=== PATIENT | female | born 1960 | race Caucasian/White ===

== ENCOUNTER 2019-10-11 09:48 | Emergency (ER) | payer OTHER ==
[2019-10-11 10:04] VITALS: BP 135/85
--- NOTE | 2019-10-11 10:41 | ED ---
Respiratory - HPI Summary HPI Summary: 59-year-old male presents to dry cough for the past 2 weeks. States that she's had sinus congestion and postnasal drip. She says she has chronic postnasal drip. States she has a history of allergies. States that one of her roommates is sick with a cold. She states that her roomate also smokes which has been bothering her allergies. States she did travel to [place] over 2 weeks ago. She was not in contact with anyone sick in [place]. She denies any fevers. No sore throat. no nausea or vomiting. no chest pain or shortness of breath currently. has a history asthma or copd. has history of fibromyalgia and seizures. - History of Current Complaint Chief Complaint: EDUpperRespComplaint Stated Complaint: COUGH PER PT Time Seen by Provider: 10/11/19 10:22 Pain Intensity: 0 - Allergy/Home Medications Allergies/Adverse Reactions: Allergies Allergy/AdvReac Type Severity Reaction Status Date / Time codeine Allergy Severe Vomiting Verified 10/11/19 10:04 erythromycin base Allergy Severe GI Upset Verified 10/11/19 10:04 oxycodone Allergy Severe Vomiting Verified 10/11/19 10:04 rosuvastatin Allergy Severe ulceration Verified 10/11/19 10:04 of the stomach Wmyyoyt-Nzz-Cck Reductase Allergy Severe muscle Verified 10/11/19 10:04 Inhibitor pain bee venom protein (honey bee) Allergy Unknown Verified 10/11/19 10:04 Reaction Details ENVIRONMENTAL Allergy Unknown BREATHING, Uncoded 10/11/19 10:04 SINUSES FRAGRANCES Allergy Unknown BREATHING Uncoded 10/11/19 10:04 Home Medications: Home Medications Ibuprofen TAB* [Motrin TAB* 600 MG] 600 mg PO TID PRN MDD 3 tabs 07/31/12 [ History Confirmed 10/11/19] Levothyroxine TAB* [Synthroid 100 MCG TAB*] 88 mcg PO EVERY OTHER DAY 07/31/12 [ History Confirmed 10/11/19] Milnacipran(NF) [Savella(NF)] 50 mg PO BID 07/31/12 [History Confirmed 10/11/19] levETIRAcetam [Keppra] 1,000 mg PO QAM 09/12/18 [History Confirmed 10/11/19] levETIRAcetam [Keppra] 500 mg PO QPM 09/12/18 [History Confirmed 10/11/19] Cholecalciferol (Vitamin D3) [Vitamin D3] 5,000 unit PO DAILY 09/19/18 [History Confirmed 10/11/19] Cyanocobalamin TAB* [Vitamin B12 TAB*] 1,000 mcg PO DAILY 10/11/19 [History Confirmed 10/11/19] Famotidine TAB* [Pepcid 20 MG TAB*] 20 mg PO DAILY 10/11/19 [History Confirmed 10/11/19] Levothyroxine TAB* [Synthroid TAB*] 100 mcg PO EVERY OTHER DAY 10/11/19 [ History Confirmed 10/11/19] Magnesium Oxide TAB* [MagOx 400 TAB*] 400 mg PO DAILY 10/11/19 [History Confirmed 10/11/19] Methenamine/Sodium Salicylate [Azo Urinary Tract Defense 162-162.5 mg] 95 mg PO DAILY PRN 10/11/19 [History Confirmed 10/11/19] Riboflavin (B2) (NF) [Vitamin B-2 (NF)] 400 mg PO DAILY 10/11/19 [History Confirmed 10/11/19] Spironolactone TAB* [Aldactone TAB*] 12.5 mg PO DAILY 10/11/19 [History Confirmed 10/11/19] PMH/Surg Hx/FS Hx/Imm Hx Endocrine/Hematology History: Reports: Hx Thyroid Disease - Hashimotos, Hx Anemia - IN THE PAST- PRIOR TO HYSTERECTOMY Denies: Hx Diabetes Cardiovascular History: Reports: Hx Angina, Hx Hypercholesterolemia, Other Cardiovascular Problems/Disorders - HISTORY OF PAC'S-OCCASIONAL PVC'S- Denies: Hx Coronary Artery Disease, Hx Hypertension, Hx Myocardial Infarction , Hx Pacemaker/ICD, Hx Valvular Heart Disease Respiratory History: Denies: Hx Asthma, Hx Chronic Obstructive Pulmonary Disease (COPD) GI History: Reports: Hx Gastroesophageal Reflux Disease - SCHOTSKI'S RING- HAS HAD 2 DILATION FOR IN THE PAST, Hx Hiatal Hernia - DX IN 2009 WITH EGD, Hx Ulcer - 3 X - History: Reports: Other Problems/Disorders - OCCASIONAL UTI Denies: Hx Dialysis, Hx Renal Disease Musculoskeletal History: Reports: Hx Arthritis - HIPS,JOINTS Sensory History: Reports: Hx Cataracts - BILATERAL, Hx Contacts or Glasses - GLASSES Denies: Hx Hearing Aid Opthamlomology History: Reports: Hx Cataracts - BILATERAL, Hx Contacts or Glasses - GLASSES Neurological History: Reports: Hx Headaches - TREATS WITH PSEUDOFED, Hx Migraine - 1 Q 3 MONTHS- TREATS WITH EXCEDRINE OR RELPAX, Other Neuro Impairments/Disorders - ?NEUROPATHY IN HANDS AND TOES Psychiatric History: Reports: Hx Depression - IN THE PAST; ON MEDICATION FOR Denies: Hx Panic Disorder - Cancer History Cancer Type, Location and Year: CERVICAL CANCER - HYSTERECTOMY Hx Chemotherapy: No Hx Radiation Therapy: No - Surgical History Surgery Procedure, Year, and Place: 2009 - Right and Left Great toe surgery - NO HARDWARE. Endoscopy X2 WITH ESOPHAGEAL DILATATION. Colonoscopy, Bilateral Cataracts. 1982 - HYSTERECTOMY, PRIOR TUBAL LIGATION. 2009 LAPAROSCOPIC CHOLECYSTECTOMY. CERVIX REPAIR X 2 POST WITH ANESTHESIA. PURSE STRING SUTURE TO THE CERVIX - 2ND Hx Anesthesia Reactions: Yes - N/V Infectious Disease History: No Infectious Disease History: Denies: Hx Hepatitis, Hx Human Immunodeficiency Virus (HIV), Traveled Outside the [place] in Last 30 Days - Family History Known Family History: Positive: Non-Contributory - Social History Alcohol Use: Occasionally Substance Use Type: Reports: None Smoking Status (MU): Never Smoked Tobacco Review of Systems Negative: Fever Positive: Nasal Discharge Negative: Chest Pain Positive: Cough. Negative: Shortness Of Breath All Other Systems Reviewed And Are Negative: Yes Physical Exam Triage Information Reviewed: Yes Vital Signs On Initial Exam: Initial Vitals Temp Pulse Resp BP Pulse Ox 99.4 F 91 14 135/85 100 10/11/19 09:58 10/11/19 09:58 10/11/19 09:58 10/11/19 09:58 10/11/19 09:58 Vital Signs Reviewed: Yes Appearance: Positive: Well-Appearing Skin: Positive: Warm, Dry Head/Face: Positive: Normal Head/Face Inspection Eyes: Positive: Normal, EOMI, MELISSA, Conjunctiva Clear ENT: Positive: Normal ENT inspection, Pharynx normal, TMs normal Respiratory/Lung Sounds: Positive: Clear to Auscultation, Breath Sounds Present Cardiovascular: Positive: Normal, RRR Abdomen Description: Positive: Nontender, Soft Bowel Sounds: Positive: Present Musculoskeletal: Positive: Normal Neurological: Positive: Normal Psychiatric: Positive: Normal Procedures - Sedation Patient Received Moderate/Deep Sedation with Procedure: No Diagnostics - Vital Signs Vital Signs Temp Pulse Resp BP Pulse Ox 10/11/19 09:58 99.4 F 91 14 135/85 100 - Laboratory Lab Statement: Any lab studies that have been ordered have been reviewed, and results considered in the medical decision making process. Disposition - Course Course Of Treatment: 59-year-old male presents to dry cough for the past 2 weeks. States that she's had sinus congestion and postnasal drip. She says she has chronic postnasal drip. States she has a history of allergies. States that one of her roommates is sick with a cold. She states that her roomate also smokes which has been bothering her allergies. States she did travel to [place] over 2 weeks ago. She was not in contact with anyone sick in [place]. She denies any fevers. No sore throat. no nausea or vomiting. no chest pain or shortness of breath currently. has a history asthma or copd. has history of fibromyalgia and seizures. on exam lungs clear to auscultation. sinus congestion noted. does not meet qualifications to test for covid. discussed likely an upper respiratory infection. told to treat supportively. patient understands agrees the plan. - Differential Dx - Cardiopulmonary Differential Diagnoses - Cardiopulmonary: Bronchitis, Influenza, Lower Resp Infection - Diagnoses Provider Diagnoses: Upper respiratory infection Discharge ED - Sign-Out/Discharge Documenting (check all that apply): Patient Departure - Discharge Plan Condition: Good Disposition: HOME Patient Education Materials: Upper Respiratory Infection (ED) Referrals: Yamel Escudero DO [Primary Care Provider] - Additional Instructions: Use saline in nose continue flonase Take Tylenol every 6 hours for pain Follow up with primary within 5 days Return to ED if develop any new or worsening symptoms - Billing Disposition and Condition Condition: GOOD Disposition: Home - Attestation Statements Provider Attestation: I was available for consultation for this patient. I did not evaluate the patient or participate in any medical decision making or disposition decisions unless I am specifically named in the chart as having consulted on the patient. If I have consulted on the patient, please see my own ED note on the patient encounter. Maria E Torres MD
--- OUTSIDE RECORDS SUMMARY | 2019-10-11 10:50 | XMS REPORT | Continuity of Care Document ---
:1960 External Reference #:[id number] Author Name Arlet Macias MD (transmitted by agent of provider Brittney Villalta) Address [address], [address] [place] [address] Care Team Providers Name Role Phone Janessa Baxter MD - Surgery Care Team Information Hadoop Consultant [phone] Momo Rosales MD - Gastroenterology Care Team Information Hadoop Consultant Zoie Escudero DO - Family Care Team Information Hadoop Consultant Medicine Gino Morrell MD - Cardiovascular Care Team Information Hadoop Consultant Disease Problems Active Problems Provider Date Hypothyroidism Tay Munoz M.D.,FACP Onset: 06/13/2007 ESR raised Tay Munoz M.D.,FACP Onset: 06/13/2007 Fibroadenosis of breast Tay Munoz M.D.,FACP Onset: 06/13/2007 Chronic gastric ulcer without Tay Munoz M.D.,FACP Onset: 12/05/2007 hemorrhage, without perforation AND without obstruction Myalgia & Myositis Unspecified Tay Munoz M.D.,FACP Onset: 06/11/2009 Mixed hyperlipidemia Tay Munoz M.D.,FACP Onset: 06/11/2009 Stricture of esophagus Tay Munoz M.D.,FACP Onset: 06/11/2009 Impaired fasting glycaemia Tay Munoz M.D.,FACP Onset: 10/23/2009 Vitamin D deficiency Tay Munoz M.D.,FACP Onset: 10/14/2010 Electrocardiogram abnormal Gino Morrell M.D. Onset: 10/26/2011 Headache Phoenix Almanza M.D. Onset: 08/28/2019 Traumatic brain injury Phoenix Almanza M.D. Onset: 08/28/2019 Chronic fatigue syndrome Phoenix Almanza M.D. 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 Onset: 04/21/2019 Epilepsy Phoenix Almanza M.D. Onset: 04/21/2019 Social History Type Date Description Comments Sex Unknown ETOH Use 09/14/2018 Rarely consumes alcohol Recreational Drug Use Denies Drug Use Tobacco Use Start: Unknown Patient has never smoked Smoking Status Reviewed: 09/19/19 Patient has never smoked Enjoy Exercising Enjoys exercising walks Dog Exercise Type/Frequency walks 1-3 miles a day Allergies, Adverse Reactions, Alerts Active Allergies Reaction Severity Comments Date Codeine 06/13/2007 Zocor muscle ache 08/16/2007 Lipitor muscle ache 08/16/2007 Crestor stomach ache 10/22/2011 Percocet n/v 05/05/2012 Welchol cant swallow 12/07/2012 Erythromycin 08/31/2018 Repatha Severe myalgias 01/18/2019 Statins 04/21/2019 Bee Sting celulitis Severe 04/21/2019 Amlodipine 08/28/2019 Medications Active Medications SIG Qnty Indications Ordering Date Provider Spironolactone 1/2 by mouth 30tabs Gino Lara 07/27/2019 25mg every day Camilo Morrell Tablets SB Pseudoephedrine HCL 2 tabs by mouth Gino Lara 09/14/2018 up to twice daily Camilo Morrell 30mg Tablets as needed Ibuprofen Take one tablet 90tabs 309.0 Tay Maya 02/16/2014 600mg Tablets by mouth three Camilo Munoz,FACP times daily as needed (pt takes one a day) Acetaminophen 2 tablets po 240tabs Tay Maya 07/26/2010 325mg q4hrs prn Camilo Munoz,FACP Tablets Excedrin Extra 2 tablets as 100tabs Tay Maya 07/26/2010 Strength needed Camilo Munoz,IMANIP [phone] Tablets Benadryl per package 30caps Tay Maya 07/26/2010 25mg Capsules directions Camilo Munoz,FACP Savella take one tablet 60tabs 716.54 Tay Maya 02/06/2010 50mg Tablets by mouth daily Camilo Munoz,FACP Levothyroxine Sodium 1 by mouth every Unknown other day 88mcg Tablets Magnesium (unsure of dose) Unknown 1 tablet by mouth daily Levothyroxine Sodium 1 by mouth every Unknown other day 100mcg Tablets Nasonex 2 spray each Unknown 50mcg/Act nostril Suspension intranasal every day prn Vitamin B2 400MG 1 tab po qd Unknown Vitamin B12 1 by mouth every Unknown 1000mcg day Tablets ER Ambien 1/2 to 1 tab at Unknown 10mg Tablets bedtime as needed Keppra 1 by mouth once Unknown 1000mg Tablets daily in am Keppra 1 by mouth at Unknown 500mg Tablets bedtime daily prn Vitamin D 1 by mouth every Unknown 2000Unit day Tablets History Medications Vitamin B2 One tab po qd Ave Castaneda, 06/30/2019 - N.P. 06/29/2019 Amlodipine Besylate 1 by mouth every 30tabs I10 Aev Castaneda, 2018 - day N.P. 07/27/2019 2.5mg Tablets Medications Administered in Office Medication SIG Qnty Indications Ordering Provider Date Records Fee Bill James MD 08/16/2019 Injection Immunizations CPT Code Status Date Vaccine Lot # [id number] Given 05/04/2013 Flu Vaccine Split Virus Preservative Free For Indiv 3Yr Older 30148 Given 05/04/2012 Influenza Virus 3Yrs & Over 24532 Given 12/07/2011 Tetanus And Diptheria (Td) For Adult Use Preservative Free 22744 Given 05/04/2010 Influenza Virus 3Yrs & Over Vital Signs Date Vital Result Comment 09/19/2019 9:34am Height 61.5 inches 5'1.50" Weight 164.00 lb Heart Rate 79 /min BP Systolic Sitting 122 mmHg BP Diastolic Sitting 70 mmHg O2 % BldC Oximetry 96 % BMI (Body Mass Index) 30.5 kg/m2 Neck Circumference in inches 14 09/19/2019 9:29am Height 61.5 inches 5'1.50" Weight 164.00 lb BMI (Body Mass Index) 30.5 kg/m2 Results Test Acquired Date Facility Test Result H/L Range Note Basic Metabolic 08/28/2019 [facility] [place] Sodium 137 mmol/L Normal 135-145 [address] [place] [address] [phone] Potassium 4.9 mmol/L Normal 3.5-5.0 Chloride 101 mmol/L Normal 101-111 Co2 Carbon Dioxide 30 mmol/L Normal 22-32 Anion Gap 6 mmol/L Normal 2-11 Glucose 110 mg/dL High 70-100 Blood Urea Nitrogen 18 mg/dL Normal 6-24 Creatinine 0.93 mg/dL Normal 0.51-0.95 BUN/Creatinine Ratio 19.4 Normal 8-20 Calcium 10.2 mg/dL Normal 8.6-10.3 Egfr Non- 61.5 >60 Egfr 74.4 >60 1 Vitamin B12 08/28/2019 [facility] [place] Vitamin B12 461 pg/mL Normal 180-914 2 And Folate 101 [facility] [place] [address] [phone] Folic Acid (Folate) 16.48 ng/mL >3.99 Laboratory test 07/28/2019 [facility] [place] Magnesium 2.1 mg/dL Normal 1.9-2.7 finding [address] [place] [address] [phone] Basic Metabolic 07/28/2019 [facility] [place] Sodium 138 mmol/L Normal 135-145 Panel [address] [place] [address] [phone] Potassium 4.3 mmol/L Normal 3.5-5.0 Chloride 100 mmol/L Low 101-111 Co2 Carbon Dioxide 29 mmol/L Normal 22-32 Anion Gap 9 mmol/L Normal 2-11 Glucose 106 mg/dL High 70-100 Blood Urea Nitrogen 15 mg/dL Normal 6-24 Creatinine 1.30 mg/dL High 0.51-0.95 BUN/Creatinine Ratio 11.5 Normal 8-20 Calcium 9.8 mg/dL Normal 8.6-10.3 Egfr Non- 41.8 >60 Egfr 50.6 >60 3 Thyroid 07/28/2019 [facility] [place] Free T4 (Free 0.74 Normal 0.61- 1.12 Panel 101 [facility] Thyroxine) ng/dL [place], [place] [id number] [phone] Thyroxine 8.53 g/dL Normal 6.09-12.23 TSH (Thyroid Stim Horm) 5.45 mcIU/mL Normal 0.34-5.60 Laboratory test 05/22/2019 [facility] [place] Copper, Serum 1.28 g/mL 0.75-1.45 4 finding [address] [place], [place] [id number] [phone] Ceruloplasmin 28.4 mg/dL 5 Erythrocyte Sed Rate 20 mm/Hr Normal 0-29 C Reactive Protein 1.51 mg/L Normal <8.01 Vitamin B12 And 05/12/2019 [facility] [place] Vitamin B12 169 pg/mL Low 180-914 6 Folate Serum [place], [place] [id number] [phone] Folic Acid (Folate) > 20.00 ng/mL >3.99 7 Laboratory 05/12/2019 [facility] [place] Free T4 (Free 0.97 Normal 0.61-1.12 8 test finding [facility] Thyroxine) ng/dL [place], [place] [id number] [phone] Levetiracetam 12.8 g/mL 9 Magnesium 2.0 mg/dL Normal 1.9-2.7 10 Basic Metabolic 05/12/2019 [facility] [place] Sodium 139 mmol/L Normal 135-145 Panel [address] [place] [address] [phone] Potassium 4.1 mmol/L Normal 3.5-5.0 Chloride 105 mmol/L Normal 101-111 Co2 Carbon Dioxide 25 mmol/L Normal 22-32 Anion Gap 9 mmol/L Normal 2-11 Glucose 110 mg/dL High 70-100 Blood Urea Nitrogen 14 mg/dL Normal 6-24 Creatinine 0.87 mg/dL Normal 0.51-0.95 BUN/Creatinine Ratio 16.1 Normal 8-20 Calcium 9.5 mg/dL Normal 8.6-10.3 Egfr Non- 66.4 >60 Egfr 80.4 >60 11 1 Because ethnic data is not always readily available, this report includes an eGFR for both -Americans and non- Americans. The National Kidney Disease Education Program (NKDEP) does not endorse the use of the MDRD equation for patients that are not between the ages of 18 and 70, are , have extremes of body size, muscle mass, or nutritional status, or are non- or non-. According to the National Kidney Foundation, irrespective of diagnosis, the stage of the disease is based on the level of kidney function: Stage Description GFR(mL/min/1.73 m(2)) 1 Kidney damage with normal or decreased GFR 90 2 Kidney damage with mild decrease in GFR 60-89 3 Moderate decrease in GFR 30-59 4 Severe decrease in GFR 15-29 5 Kidney failure <15 (or dialysis) 2 Normal Range 180 to 914 Indeterminate Range 145 to 180 Deficient Range <145 3 Because ethnic data is not always readily available, this report includes an eGFR for both -Americans and non- Americans. The National Kidney Disease Education Program (NKDEP) does not endorse the use of the MDRD equation for patients that are not between the ages of 18 and 70, are , have extremes of body size, muscle mass, or nutritional status, or are non- or non-. According to the National Kidney Foundation, irrespective of diagnosis, the stage of the disease is based on the level of kidney function: Stage Description GFR(mL/min/1.73 m(2)) 1 Kidney damage with normal or decreased GFR 90 2 Kidney damage with mild decrease in GFR 60-89 3 Moderate decrease in GFR 30-59 4 Severe decrease in GFR 15-29 5 Kidney failure <15 (or dialysis) 4 ADDITIONAL INFORMATION This test was developed and its performance characteristics determined by [facility] in a manner consistent with CLIA requirements. This test has not been cleared or approved by the U.S. Food and Drug Administration. Test Performed by: [facility] [place] [address] Picking Crew Supervisor: John Germain M.D. Ph.D.; CLIA# [id number] 5 REFERENCE VALUE 20.0 - 51.0 Test Performed by: [facility] [address] Picking Crew Supervisor: John Germain M.D. Ph.D.; CLIA# [id number] 6 Normal Range 180 to 914 Indeterminate Range 145 to 180 Deficient Range <145 7 Copy Result to: ZOIE ESCUDERO ([id number]) 8 Copy Result to: ZOIE ESCUDERO ([id number]) 9 REFERENCE VALUE 12.0 - 46.0 ADDITIONAL INFORMATION This test was developed and its performance characteristics determined by [facility] in a manner consistent with CLIA requirements. This test has not been cleared or approved by the U.S. Food and Drug Administration. Test Performed by: [facility] [place] [address] Picking Crew Supervisor: John Germain M.D. Ph.D.; CLIA# [id number] 10 Copy Result to: ZOIE ESCUDERO ([id number]) 11 Because ethnic data is not always readily available, this report includes an eGFR for both -Americans and non- Americans. The National Kidney Disease Education Program (NKDEP) does not endorse the use of the MDRD equation for patients that are not between the ages of 18 and 70, are , have extremes of body size, muscle mass, or nutritional status, or are non- or non-. According to the National Kidney Foundation, irrespective of diagnosis, the stage of the disease is based on the level of kidney function: Stage Description GFR(mL/min/1.73 m(2)) 1 Kidney damage with normal or decreased GFR 90 2 Kidney damage with mild decrease in GFR 60-89 3 Moderate decrease in GFR 30-59 4 Severe decrease in GFR 15-29 5 Kidney failure <15 (or dialysis) Procedures Date Code Description Status 05/18/2019 07138 EKG Tracing & Interpretation Completed 05/12/2019 92479 EEG Recording Awake & Asleep Completed 07/10/2013 [id number] Mammogram Completed 07/07/2012 [id number] Mammogram Completed 07/06/2011 [id number] Mammogram Completed 01/19/2011 [id number] Diabetic Foot Exam Completed 01/06/2011 [id number] Diabetic Foot Exam Completed 07/03/2010 [id number] Mammogram Completed 05/12/2010 [id number] Bone Mineral Density Test Completed 02/05/2009 [id number] Mammogram Completed 06/12/2008 [id number] Diabetic Foot Exam Completed 01/06/2008 [id number] Mammogram Completed 11/15/2007 [id number] Colonoscopy Completed Medical Devices Description No Information Available Encounters Type Date Location Provider Dx Diagnosis Office Visit 08/28/2019 [facility] Phoenix Almanza, Z87.820 Personal history 1:45p Services Of Rosie Page of traumatic brain injury R51 Headache 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 unspecified E78.2 Mixed hyperlipidemia R51 Headache I42.9 Cardiomyopathy, unspecified I10 Essential (primary) hypertension Office Visit 05/19/2019 2:00p [facility] Ck R41.1 Anterograde [facility] aCitlin May amnesia G40.909 Epilepsy, unsp, not intractable, without status epilepticus S06.2x9A Diffuse Tbi w loss of consciousness of unsp duration, init R20.2 Paresthesia of skin R51 Headache R25.1 Tremor, unspecified M79.7 Fibromyalgia Office Visit 05/18/2019 Mine Lara E78.2 Mixed hyperlipidemia 3:00p Cardiology Camilo Morrell R53.82 Chronic fatigue, unspecified I42.9 Cardiomyopathy, unspecified R94.31 Abnormal electrocardiogram [ECG] [EKG] Office Visit 04/21/2019 Mine Garibay S06.2x9A Diffuse Tbi w loss 2:00p Neurologic Camilo Almanza of consciousness [facility] of unsp duration, init G40.909 Epilepsy, unsp, not intractable, without status epilepticus 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 injury 08/28/2019 R51 Headache Phoenix Almanza M.D. 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 08/28/2019 M79.7 Fibromyalgia Phoenix Almanza M.D. 08/10/2019 I10 Essential (primary) hypertension Nurse Visit cc 07/25/2019 I10 Essential (primary) hypertension Nurse Visit cc 07/07/2019 S06.0x1S Concussion with loss of consciousness of Bill James MD 30 minutes or less, sequela 07/07/2019 M79.7 Fibromyalgia Bill James MD 07/07/2019 M35.7 Hypermobility syndrome Bill James MD 07/07/2019 R53.83 Other fatigue Bill James MD 06/30/2019 R53.82 Chronic fatigue, unspecified Ave Chance. Leonel, N.P. 06/30/[address] Leonel, N.P. 06/30/[address] Leonel, N.P. 06/30/2019 I42.9 Cardiomyopathy, unspecified Ave S. Foster, N.P. 06/30/2019 I10 Essential (primary) hypertension Ave Chance. Leonel, N.P. 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 05/19/2019 G40.909 Epilepsy, unspecified, not intractable, Ck May, N.P. 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 of consciousness of unspecified duration, initial encounter 05/19/2019 R20.2 Paresthesia of skin Ck May, N.P. 05/19/2019 R51 Headache Ck May, N.P. 05/19/2019 R25.1 Tremor, unspecified Ck May, N.P. 05/19/2019 M79.7 Fibromyalgia Ck May, N.P. 05/18/2019 E78.2 Mixed hyperlipidemia Gino Morrell M.D. 05/18/2019 R53.82 Chronic fatigue, unspecified Gino Morrell M.D. 05/18/2019 I42.9 Cardiomyopathy, unspecified Gino Morrell M.D. 05/18/2019 R94.31 Electrocardiogram abnormal Gino Morrell M.D. 05/12/2019 R25.1 Tremor, unspecified Eliecer Sewell MD 04/21/2019 S06.2x9A Diffuse traumatic brain injury with loss Phoenix Almanza M.D. of consciousness of unspecified duration, initial encounter 04/21/2019 G40.909 Epilepsy, unspecified, not intractable, Phoenix Almanza M.D. 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 04/21/2019 R53.82 Chronic fatigue, unspecified Phoenix Almanza M.D. Plan of Treatment Future Appointment(s):10/31/2019 10:30 am - Charisma Dickinson DNP, RN, RECORD CHANGER ASSEMBLER- at [facility]11/16/2019 3:30 pm - Bill James MD at [facility]01/12/2020 2:30 pm - Phoenix Almanza M.D. at [facility]11/07/2019 11:40 am - Gino Morrell M.D. at [facility]/2020 - Arlet Macias, MDR06.83 SnoringNew Orders:Sleep Study, Ordered: 09/19/19Follow up:6 wrunbC96.83 Other [id number] Insomnia, unspecified Functional Status Description No Information Available Mental Status Description No Information Available Referrals Refer to Reason for Referral Status Appt Date [facility] Concern for sleep apnea Sent 09/19/[address] [place] [id number] [phone] Phoenix Parada, PHD [address] [place] [address] [phone] Power Toribio MD Sent [address] [facility] [address] [place], [place] [id number] [phone]
--- OUTSIDE RECORDS SUMMARY | 2019-10-11 10:50 | XMS REPORT | Continuity of Care Document ---
:1960 External Reference #:[id number] Author Name Zoie Escudero Address [address] [place] [address] Problems Active Problems Provider Date Adult health examination Onset: 08/22/2018 Hypercholesterolemia Onset: 09/20/2018 Hypothyroidism Onset: 08/22/2018 Cardiomyopathy Onset: Traumatic subdural hematoma Ben Ahumada MD Onset: 07/13/2019 Essential hypertension Zoie EscuderoDO Onset: 08/01/2019 Social History Type Date Description Comments Sex Unknown Tobacco Use Start: Unknown Patient has never smoked Smoking Status Reviewed: 08/01/19 Patient has never smoked Allergies, Adverse Reactions, Alerts Active Allergies Reaction Severity Comments Date Atorvastatin Calcium Rhabdomyolysis, muscle 03/31/2019 Trihydrate wasting, pain Codeine severe vomiting 03/31/2019 Erythromycin upset stomach +yeast 03/31/2019 infection? Percocet severe vomiting 03/31/2019 Medications Active Medications SIG Qnty Indications Ordering Provider Date Levothyroxine Sodium 1 daily Oral 90tabs Zoie Reidlilibeth, 06/06/2019 88mcg DO Tablets Magnesium Zoie Karlilibeth, 05/15/2019 400mg Tablets DO Ibuprofen 1 three times 180tabs LALA Varela 10/28/2018 600mg Tablets daily as needed oral; mdd 3 tabs Keppra 1 daily oral; 90tabs LALA Varela 10/28/2018 500mg Tablets 500mg pm Savella 1 twice daily 180tabs LALA Varela 10/28/2018 50mg Tablets oral Azo Urinary Pain Relief Oral; takes Unknown 09/20/2018 prn for pain 95mg Tablets Keppra 1 daily oral; 90tabs LALA Varela 09/20/2018 1000mg Tablets 1000mg in am Vitamin D2 Unknown Vitamin B12 1 daily oral Unknown 1000mcg Tablets ER Vitamin B-2 4 tabs by Unknown 100mg Tablets mouth every day Spironolactone oral; take 1 Unknown 25mg Tablets tablet by mouth once daily Pepcid one daily Unknown 20mg Tablets Immunizations CPT Code Status Date Vaccine Lot # [id number] Given 05/15/2019 Flu < 65 years [id number] Vital Signs Date Vital Result Comment 08/01/2019 10:35am BP Systolic 124 mmHg BP Diastolic 68 mmHg Heart Rate 83 /min Body Temperature 98.2 F O2 % BldC Oximetry 98 % 05/25/2019 2:31pm BP Systolic 132 mmHg left arm BP Diastolic 76 mmHg left arm Weight 161.00 lb Heart Rate 83 /min Body Temperature 98.4 F O2 % BldC Oximetry 96 % Results Test Acquired Date Facility Test Result H/L Range Note Basic Metabolic 08/28/2019 [facility] Sodium 137 mmol/L Normal 135-145 Panel [address] [place] [address] [phone] Potassium 4.9 mmol/L Normal 3.5-5.0 Chloride 101 mmol/L Normal 101-111 Co2 Carbon Dioxide 30 mmol/L Normal 22-32 Anion Gap 6 mmol/L Normal 2-11 Glucose 110 mg/dL High 70-100 Blood Urea Nitrogen 18 mg/dL Normal 6-24 Creatinine 0.93 mg/dL Normal 0.51-0.95 BUN/Creatinine Ratio 19.4 Normal 8-20 Calcium 10.2 mg/dL Normal 8.6-10.3 Egfr Non- 61.5 >60 Egfr 74.4 >60 1 Laboratory test 08/28/2019 [facility] Vitamin B12 461 pg/mL Normal 180-914 2 finding [address] [place] [address] [phone] Folic Acid (Folate) 16.48 ng/mL >3.99 HIV 4TH 07/31/2019 [facility] HIV 4th Nonreactive Nonreactive Generation [address] [facility] [place] [address] [phone] Laboratory 07/31/2019 [facility] Hepatitis B Nonreactive Nonreactive test finding [address] [facility] [place] [address] [phone] Hepatitis B Darnell AB Titer Indeterminate Abnormal Immune 3 Hepatitis C Antibody 07/31/2019 [facility] HCV Index 0.01 s/c [address] [place] [address] [phone] Hepatitis C Antibody Negative Negative Laboratory 07/31/2019 [facility] Hepatitis C Undetected Undetected [address] Rna Quant IU/[place] [address] [phone] Hepatitis A IgM Antibody Negative Negative 5 CFM Urine 05/15/2019 [facility] Urine, Microalbumin 10mg/L Microalbumin/Creat R ( )- - Urine, Creatinine, Random 100mg/dl Microalb/CR Ratio <30mg/g-normal Laboratory test 05/12/2019 [facility] TSH (Thyroid 0.23 Low 0.34-5.[address] Stim Horm) mcIU/[place] [address] [phone] Free T4 (Free Thyroxine) 0.95 ng/dL Normal 0.61-1.12 Laboratory 05/12/2019 [facility] Free T4 (Free 0.97 Normal 0.61-1.12 [address] Thyroxine) ng/[place] [address] [phone] Folic Acid (Folate) > 20.00 ng/mL >3.99 7 Vitamin B12 169 pg/mL Low 180-914 8 Basic Metabolic 05/12/2019 [facility] Sodium 139 mmol/L Normal 135-[address] [place] [address] [phone] Potassium 4.1 mmol/L Normal 3.5-5.0 Chloride 105 mmol/L Normal 101-111 Co2 Carbon Dioxide 25 mmol/L Normal 22-32 Anion Gap 9 mmol/L Normal 2-11 Glucose 110 mg/dL High 70-100 Blood Urea Nitrogen 14 mg/dL Normal 6-24 Creatinine 0.87 mg/dL Normal 0.51-0.95 BUN/Creatinine Ratio 16.1 Normal 8-20 Calcium 9.5 mg/dL Normal 8.6-10.3 Egfr Non- 66.4 >60 Egfr 80.4 >60 9 Laboratory test 05/12/2019 [facility] Magnesium 2.0 mg/dL Normal 1.9-2.7 10 finding [address] [place] [address] [phone] Levetiracetam 12.8 g/mL 11 Xray 05/03/2019 [facility] Ultrasound Breast Left <pending> [address] [place] [address] [phone] Mammography, Left Breast <pending> 1 Because ethnic data is not always [...] 145 to 180 Deficient Range <145 3 Unable to determine if the antibody is present at levels consistent with immunity. Immune status should be further assessed by considering other clinical information or retesting another specimen drawn at a later time. 4 Result in log IU/mL is Undetected. ADDITIONAL INFORMATION The quantification range of this assay is 15 to 100,000,000 IU/mL (1.18 log to 8.00 log IU/mL). Testing was performed using the marii HCV test ([employer] with the marii 6800 System. Test Performed by: [place] [address] Cylinder Inspector: John Germain M.D. Ph.D.; CLIA# [id number] 5 Result does not exclude the possibility of exposure to hepatitis A virus. Antibody level during early infection stage may be below the limit of detection of the assay. Test Performed by: [place] [address] Cylinder Inspector: John Germain M.D. Ph.D.; CLIA# [id number] 6 Copy Result to: ZOIE ESCUDERO ([id number]) 7 Copy Result to: ZOIE ESCUDERO ([id number]) 8 Normal Range 180 to 914 Indeterminate Range 145 to 180 Deficient Range <145 9 Because ethnic data is not always readily [...] 15-29 5 Kidney failure <15 (or dialysis) 10 Copy Result to: ZOIE ESCUDERO ([id number]) 11 REFERENCE VALUE 12.0 - 46.0 ADDITIONAL INFORMATION This test was developed and its performance characteristics determined by [facility] in a manner consistent with CLIA requirements. This test has not been cleared or approved by the U.S. Food and Drug Administration. Test Performed by: [facility] - [address] [address] Cylinder Inspector: John Germain M.D. Ph.D.; CLIA# [id number] Procedures Description No Information Available Medical Devices Description No Information Available Encounters Type Date Location Provider Dx Diagnosis Office Visit 08/01/2019 [facility] Main Zoie Karnow, DO F43.21 Adjustment disorder 10:15a with depressed mood I10 Essential (primary) hypertension K59.00 Constipation, unspecified M79.7 Fibromyalgia Z13.31 Encounter for screening for depression Office Visit 05/25/2019 2:30p [facility] Zoie Franklinnow, DO R51 Headache M54.2 Cervicalgia M79.601 Pain in right arm G40.89 Other seizures F43.21 Adjustment disorder with depressed mood Office Visit 05/15/2019 11:45a [facility] Zoie Franklinnow, DO R51 Headache F43.21 Adjustment disorder with depressed mood K59.00 Constipation, unspecified I10 Essential (primary) hypertension Z23 Encounter for immunization Assessments Date Code Description Provider 08/01/2019 F43.21 Adjustment disorder with depressed mood Zoie Franklinnow, DO 08/01/2019 I10 Essential (primary) hypertension Zoie Karnow, DO 08/01/2019 K59.00 Constipation, unspecified Zoie Karnow, DO 08/01/2019 M79.7 Fibromyalgia Zoie Karnow, DO 08/01/2019 Z13.31 Encounter for screening for depression Zoie Franklinnow, DO 05/25/2019 R51 Headache Zoie Karnow, DO 05/25/2019 M54.2 Cervicalgia Zoie Karnow, DO 05/25/2019 M79.601 Pain in right arm Zoie Karnow, DO 05/25/2019 G40.89 Other seizures Zoie Karnow, DO 05/25/2019 F43.21 Adjustment disorder with depressed mood Zoie Karnow, DO 05/15/2019 R51 Headache Zoie Karnow, DO 05/15/2019 F43.21 Adjustment disorder with depressed mood Zoie Karnow, DO 05/15/2019 K59.00 Constipation, unspecified Zoie Karnow, DO 05/15/2019 I10 Essential (primary) hypertension Zoie Karnow, DO 05/15/2019 Z23 Encounter for immunization Zoie Franklinmarcelow, DO Plan of Treatment Future Appointment(s):10/10/2019 11:30 am - Zoie Escudero, DO at [facility]01/2020 - Zoie Franklinnow, DOF43.21 Adjustment disorder with depressed moodComments:Long discussion today about her moodSupportive listeningEncouragementDiscussed ways to reframe how she thinks about this time of not workingWaiting [facility] about gbppsbaaluV14 Essential (primary) hypertensionComments:Well controlled today Has f/u with Dr. Samayoa labs reviewed - show new creatinine elevation - would repeat in a few wxutlpH04.00 Constipation, unspecifiedComments:continue to work with lifestyle yqymafyB29.7 FibromyalgiaComments:saw rheum - records requested - Suhail got approved and does help with her qtydmmfrL41.31 Encounter for screening for depressionAllComments:>25min visit with more than 50% of the time spent counseling follow up in 2 month, sooner if needed Functional Status Description No Information Available Mental Status Description No Information Available Referrals Description No Information Available
--- OUTSIDE RECORDS SUMMARY | 2019-10-11 10:50 | XMS REPORT | Continuity of Care Document ---
:1960 External Reference #:[id number] Author Name Bill James MD (transmitted by agent of provider Luz Maria Hutchison) Address [address] [place] [id number] Care Team Providers Name Role Phone Janessa Baxter MD - Surgery Care Team Information Drop Hammer Setter Up [phone] Momo Rosales MD - Gastroenterology Care Team Information Drop Hammer Setter Up Zoie Escudero DO - Family Care Team Information Drop Hammer Setter Up Medicine Gino Morrell MD - Cardiovascular Care Team Information Drop Hammer Setter Up Disease Problems Active Problems Provider Date Hypothyroidism Tay Munoz M.D.,FACP Onset: 06/13/2007 ESR raised Tay Munoz M.D.,FACP Onset: 06/13/2007 Fibroadenosis of breast aTy Munoz M.D.,FACP Onset: 06/13/2007 Chronic gastric ulcer [...] Patient has never smoked Smoking Status Reviewed: 09/18/19 Patient has never smoked Enjoy Exercising Enjoys [...] 100tabs Tay Maya 07/26/2010 Strength needed Camilo Munoz,FACP [phone] Tablets Benadryl per package 30caps Tay Maya [...] Besylate 1 by mouth every 30tabs I10 [address] Castaneda, 2018 - day N.P. 07/27/2019 2.5mg Tablets Medications Administered in Office Medication SIG Qnty Indications Ordering Provider Date Records Fee Bill James MD 08/16/2019 Injection Immunizations CPT Code Status Date Vaccine Lot # [id number] Given 05/04/2013 Flu Vaccine Split Virus Preservative Free For Indiv 3Yr Older 62119 Given 05/04/2012 Influenza Virus 3Yrs & Over 92421 Given 12/07/2011 Tetanus And Diptheria (Td) For Adult Use Preservative Free 83928 Given 05/04/2010 Influenza Virus 3Yrs & Over Vital Signs Date Vital Result Comment 09/18/2019 11:32am Height 61.5 inches 5'1.50" Weight 166.00 lb Heart Rate 90 /min BP Systolic 152 mmHg BP Diastolic 83 mmHg Pain Level 4 O2 % BldC Oximetry 96 % BMI (Body Mass Index) 30.9 kg/m2 08/28/2019 1:44pm Height 61.5 inches 5'1.50" Weight 163.38 lb Heart Rate 98 /min BP Systolic 120 mmHg BP Diastolic 80 mmHg BMI (Body Mass Index) 30.4 kg/m2 Results Test Acquired Date Facility Test Result H/L Range Note Basic Metabolic 08/28/2019 [facility] Sodium 137 mmol/L Normal 135-145 Panel [address] [place] [address] [phone] Potassium 4.9 mmol/L Normal 3.5-5.0 Chloride 101 mmol/L Normal 101-111 Co2 Carbon Dioxide 30 mmol/L Normal 22-32 Anion Gap 6 mmol/L Normal 2-11 Glucose 110 mg/dL High 70-100 Blood Urea Nitrogen 18 mg/dL Normal 6-24 Creatinine 0.93 mg/dL Normal 0.51-0.95 BUN/Creatinine Ratio 19.4 Normal 8-20 Calcium 10.2 mg/dL Normal 8.6-10.3 Egfr Non- 61.5 >60 Egfr 74.4 >60 1 Vitamin B12 08/28/2019 [facility] Vitamin B12 461 pg/mL Normal 180-914 2 And Folate [address] [facility] [place] [address] [phone] Folic Acid (Folate) 16.48 ng/mL >3.99 Laboratory test 07/28/2019 [facility] Magnesium 2.1 mg/dL Normal 1.9-2.7 finding [address] [place] [address] [phone] Basic Metabolic 07/28/2019 [facility] Sodium 138 mmol/L Normal 135-145 Panel [address] [place] [address] [phone] Potassium 4.3 mmol/L Normal 3.5-5.0 Chloride 100 mmol/L Low 101-111 Co2 Carbon Dioxide 29 mmol/L Normal 22-32 Anion Gap 9 mmol/L Normal 2-11 Glucose 106 mg/dL High 70-100 Blood Urea Nitrogen 15 mg/dL Normal 6-24 Creatinine 1.30 mg/dL High 0.51-0.95 BUN/Creatinine Ratio 11.5 Normal 8-20 Calcium 9.8 mg/dL Normal 8.6-10.3 Egfr Non- 41.8 >60 Egfr 50.6 >60 3 Thyroid 07/28/2019 [facility] Free T4 (Free 0.74 Normal 0.61- 1.12 Panel [address] [facility] Thyroxine) ng/[place] [address] [phone] Thyroxine 8.53 g/dL Normal 6.09-12.23 TSH (Thyroid Stim Horm) 5.45 mcIU/mL Normal 0.34-5.60 Laboratory test 05/22/2019 [facility] Copper, Serum 1.28 g/mL 0.75-1.45 4 finding [address] [place] [address] [phone] Ceruloplasmin 28.4 mg/dL 5 Erythrocyte Sed Rate 20 mm/Hr Normal 0-29 C Reactive Protein 1.51 mg/L Normal <8.01 Vitamin B12 And 05/12/2019 [facility] Vitamin B12 169 pg/mL Low 180-[address] [place] [address] [phone] Folic Acid (Folate) > 20.00 ng/mL >3.99 7 Laboratory 05/12/2019 [facility] Free T4 (Free 0.97 Normal 0.61-1.12 8 test finding [facility] Thyroxine) ng/dL [place], [place] [address] [phone] Levetiracetam 12.8 g/mL 9 Magnesium 2.0 mg/dL Normal 1.9-2.7 10 Basic Metabolic 05/12/2019 [facility] Sodium 139 mmol/L Normal 135-[address] [place] [address] [phone] Potassium 4.1 mmol/L Normal 3.5-5.0 Chloride 105 [...] developed and its performance characteristics determined by [facility] in a manner consistent with CLIA requirements. This test has not been cleared or approved by the U.S. Food and Drug Administration. Test Performed by: [facility] [place] [id number] Corrections Counselor: John Germain M.D. Ph.D.; CLIA# [id number] 5 REFERENCE VALUE 20.0 - 51.0 Test Performed by: [facility] [place] [id number] Corrections Counselor: John Germain M.D. Ph.D.; CLIA# [id number] 6 Normal Range 180 to 914 Indeterminate Range 145 to 180 Deficient Range <145 7 Copy Result to: ZOIE ESCUDERO ([id number]) 8 Copy Result to: ZOIE ESCUDERO ([id number]) 9 REFERENCE VALUE 12.0 - 46.0 ADDITIONAL INFORMATION This test was developed and its performance characteristics determined by [facility] in a manner consistent with CLIA requirements. This test has not been cleared or approved by the U.S. Food and Drug Administration. Test Performed by: [facility] [place] [address] Corrections Counselor: John Germain M.D. Ph.D.; CLIA# [id number] 10 Copy Result to: ZOIE ESCUDERO ([id number]) 11 Because ethnic data is not always [...] dialysis) Procedures Date Code Description Status 05/18/2019 21259 EKG Tracing & Interpretation Completed 05/12/2019 15144 EEG Recording Awake & Asleep Completed 07/10/2013 17311829 Mammogram Completed 07/07/2012 76102900 Mammogram Completed 07/06/2011 24743099 Mammogram Completed 01/19/2011 [id number] Diabetic Foot Exam Completed 01/06/2011 652636628 Diabetic Foot Exam Completed 07/03/2010 33646340 Mammogram Completed 05/12/2010 665534853 Bone Mineral Density Test Completed 02/05/2009 75925543 Mammogram Completed 06/12/2008 550008639 Diabetic Foot Exam Completed 01/06/2008 27933585 Mammogram Completed 11/15/2007 74874480 Colonoscopy Completed Medical Devices Description No Information Available Encounters Type Date Location Provider Dx Diagnosis Office Visit 08/28/2019 [facility] Phoenix Almanza, Z87.820 Personal history 1:45p [facility] Page of traumatic brain injury R51 Headache 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 unspecified E78.2 Mixed hyperlipidemia R51 Headache I42.9 Cardiomyopathy, unspecified I10 Essential (primary) hypertension Office Visit 05/19/2019 2:00p [facility] R41.1 Anterograde [facility] Caitlin May amnesia G40.909 Epilepsy, unsp, not intractable, without status epilepticus S06.2x9A Diffuse Tbi w loss of consciousness of unsp duration, init R20.2 Paresthesia of skin R51 Headache R25.1 Tremor, unspecified M79.7 Fibromyalgia Office Visit 05/18/2019 [place] Gino FRohan E78.2 Mixed hyperlipidemia 3:00p Cardiology Camilo Morrell R53.82 Chronic fatigue, unspecified I42.9 Cardiomyopathy, unspecified R94.31 Abnormal electrocardiogram [ECG] [EKG] Office Visit 04/21/2019 [place] Phoenix S06.2x9A Diffuse Tbi w loss 2:00p Neurolog[facility] Camilo Almanza of consciousness 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 06/30/[address] Castaneda, N.P. 06/30/[address] Castaneda, N.P. 06/30/2019 I42.9 Cardiomyopathy, unspecified Ave Castaneda, N.P. 06/30/2019 I10 Essential (primary) hypertension Ave Castaneda, N.P. 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 05/19/2019 G40.909 Epilepsy, unspecified, not [...] Almanza M.D. 04/21/2019 R53.82 Chronic fatigue, unspecified Christopher Archie, M.D. Plan of Treatment Future Appointment(s):11/16/2019 3:30 pm - Bill James MD at [facility]01/12/2020 2:30 pm - Phoenix Almanza M.D. at [place] [facility]11/07/2019 11:40 am - Gino Morrell M.D. at [place] [facility]15/24/2020 - Bill James, MDM79.7 FibromyalgiaFollow up:2-3 months please print neuropsych testing if able and my old noteM77.01 Medial epicondylitis, right elbowNew Orders:Right elbow epicondylitis elbow strap, Ordered: 09/18/19M77.02 Medial epicondylitis, left elbowNew Orders:Left epicondylitis elbow strap, Ordered: 09/18/19M72.2 Plantar fascial fibromatosis Functional Status Description No Information Available Mental Status Description No Information Available Referrals Refer to Dr Reason for Referral Status Appt Date [facility] Concern for sleep apnea Sent 09/19/[address] [place] [address] [phone] [place] Parada, PHD Sent [address] [place] [address] [phone] Power Toribio MD Sent [address] [place] [address] [place] [address] [phone]
--- OUTSIDE RECORDS SUMMARY | 2019-10-11 10:50 | XMS REPORT | Continuity of Care Document ---
:1960 Author Organization [facility] Address [address] [place] [address] Phone Care Team Providers Name Role Phone SAMANTHA WISDOM, ZEUS Unavailable Unavailable Allergies, Adverse Reactions, Alerts Substance Reaction Status Substance Type Unknown Medications Medication Instructions Dosage Effective Dates (start - stop) Status Comments Drug Treatment Unknown Problems Condition Effective Dates (start - stop) Clinical Status Memory loss of unknown cause Memory loss of unknown cause Procedures Procedure Date Procedure Unknown Results Test Name Date and Time Measure Units Reference Range Abnormal Flag Status Comments Unknown Encounters Encounter Practice Location Reason(s) Diagnoses Date Provider Providers Description For Visit Copied on Encounter 2019 [facility] -[address] [place] [address], [facility] [address]. tel:[phone] tel:[phone] [facility] [address] [place] [address], [facility] [address]. tel:[phone] tel:[phone] [facility] [address] [facility], [address] of unknown -[address] tel:[phone] Family History Family Member Diagnosis Age At Onset Unknown Immunizations Vaccine Date Status Comments Immunization Unknown Payers Payer name Insurance type Covered constitution party ID Authorization(s) Unknown Social History Type Description Quantity Date Captured Comments Unknown Vital Signs Date / Height Weight BMI Pulse Blood Temperature Respiratory Body Head BMI Time: Rate Pressure Rate Surface Circumference percentile Area Unknown Chief Complaint And Reason For Visit No information Reason For Referral Reason For Referral Unknown Plan Of Care Date Type Action Status Unknown Date Type Problem Goal Intervention Status Start Date Unknown History Of Present Illness Encounter Date Complaint History Of Present Illness No information Functional Status Encounter Date Functional Assessment Cognitive Assessment Unknown Medications Administered Medication Instructions Dosage Effective Dates (start - stop) Status Comments Drug Treatment Unknown Instructions Date Instruction Additional Information Unknown
--- OUTSIDE RECORDS SUMMARY | 2019-10-11 10:50 | XMS REPORT | Continuity of Care Document ---
:1960 External Reference #:[id number] Author Name Zoie Escudero Address [address] [place] [address] Problems Active Problems Provider Date Adult health [...] Reidlilibeth, 06/06/2019 88mcg DO Tablets Magnesium Zoie Karlilibeht, 05/15/2019 400mg Tablets DO Ibuprofen 1 three [...] CPT Code Status Date Vaccine Lot # [id number] Given 05/15/2019 Flu < 65 years [id number] Vital Signs Date Vital Result Comment 08/01/2019 [...] Result H/L Range Note Basic Metabolic 08/28/2019 [facility] Sodium 137 mmol/L Normal 135-145 Panel [address] [place] [address] [phone] Potassium 4.9 mmol/L Normal 3.5-5.0 Chloride 101 mmol/L Normal 101-111 Co2 Carbon Dioxide 30 mmol/L Normal 22-32 Anion Gap 6 mmol/L Normal 2-11 Glucose 110 mg/dL High 70-100 Blood Urea Nitrogen 18 mg/dL Normal 6-24 Creatinine 0.93 mg/dL Normal 0.51-0.95 BUN/Creatinine Ratio 19.4 Normal 8-20 Calcium 10.2 mg/dL Normal 8.6-10.3 Egfr Non- 61.5 >60 Egfr 74.4 >60 1 HIV 4TH 07/31/2019 [facility] HIV 4th Nonreactive Nonreactive [address] [place] [address] [phone] Laboratory 07/31/2019 [facility] Hepatitis B Nonreactive Nonreactive test finding [address] [place] [address] [phone] Hepatitis B Darnell AB Titer Indeterminate Abnormal Immune 2 Hepatitis C Antibody 07/31/2019 [facility] HCV Index 0.01 s/c [address] [place] [address] [phone] Hepatitis C Antibody Negative Negative Laboratory 07/31/2019 [facility] Hepatitis C Undetected Undetected 3 test finding [address] Rna Quant IU/[place] [address] [phone] Hepatitis A IgM Antibody Negative Negative 4 [facility] Urine 05/15/2019 [facility] Urine, Microalbumin 10mg/L Microalbumin/Creat R ( )- - Urine, Creatinine, Random 100mg/dl Microalb/CR Ratio <30mg/g-normal Laboratory test 05/12/2019 [facility] TSH (Thyroid 0.23 Low 0.34-5.[address] Stim Horm) mcIU/[place] [address] [phone] Free T4 (Free Thyroxine) 0.95 ng/dL Normal 0.61-1.12 Laboratory 05/12/2019 [facility] Free T4 (Free 0.97 Normal 0.61-1.12 [address] Thyroxine) ng/[place] [address] [phone] Folic Acid (Folate) > 20.00 ng/mL >3.99 6 Vitamin B12 169 pg/mL Low 180-914 7 Basic Metabolic 05/12/2019 [facility] Sodium 139 mmol/L Normal 135-[address] [place] [address] [phone] Potassium 4.1 mmol/L Normal 3.5-5.0 Chloride 105 mmol/L Normal 101-111 Co2 Carbon Dioxide 25 mmol/L Normal 22-32 Anion Gap 9 mmol/L Normal 2-11 Glucose 110 mg/dL High 70-100 Blood Urea Nitrogen 14 mg/dL Normal 6-24 Creatinine 0.87 mg/dL Normal 0.51-0.95 BUN/Creatinine Ratio 16.1 Normal 8-20 Calcium 9.5 mg/dL Normal 8.6-10.3 Egfr Non- 66.4 >60 Egfr 80.4 >60 8 Laboratory test 05/12/2019 [facility] Magnesium 2.0 mg/dL Normal 1.9-2.[address] [place] [address] [phone] Levetiracetam 12.8 g/mL 10 Xray 05/03/2019 [facility] Ultrasound Breast Left <pending> [address] [place] [address] [phone] Mammography, Left Breast <pending> 1 Because ethnic [...] 5 Kidney failure <15 (or dialysis) 2 Unable to determine if the antibody is present at levels consistent with immunity. Immune status should be further assessed by considering other clinical information or retesting another specimen drawn at a later time. 3 Result in log IU/mL is Undetected. ADDITIONAL INFORMATION The quantification range of this assay is 15 to 100,000,000 IU/mL (1.18 log to 8.00 log IU/mL). Testing was performed using the marii HCV test ([employer] with the marii 6800 System. Test Performed by: [place] [address] Wheel Press Operator: John Germain M.D. Ph.D.; CLIA# [id number] 4 Result does not exclude the possibility of exposure to hepatitis A virus. Antibody level during early infection stage may be below the limit of detection of the assay. Test Performed by: [place] [address] Wheel Press Operator: John Germain M.D. Ph.D.; CLIA# [id number] 5 Copy Result to: ZOIE ESCUDERO ([id number]) 6 Copy Result to: ZOIE ESCUDERO ([id number]) 7 Normal Range 180 to 914 Indeterminate Range 145 to 180 Deficient Range <145 8 Because ethnic data is not always readily [...] 15-29 5 Kidney failure <15 (or dialysis) 9 Copy Result to: ZOIE ESCUDERO ([id number]) 10 REFERENCE VALUE 12.0 - 46.0 ADDITIONAL INFORMATION This test was developed and its performance characteristics determined by [facility] in a manner consistent with CLIA requirements. This test has not been cleared or approved by the U.S. Food and Drug Administration. Test Performed by: [facility] - [address] [address] Wheel Press Operator: John Germain M.D. Ph.D.; CLIA# [id number] Procedures Description No Information Available Medical Devices Description No Information Available Encounters Type Date Location Provider Dx Diagnosis Office Visit 08/01/2019 [facility] Faraz Escudero DO F43.21 Adjustment disorder 10:15a with depressed mood I10 Essential (primary) hypertension K59.00 Constipation, unspecified M79.7 Fibromyalgia Z13.31 Encounter for screening for depression Office Visit 05/25/2019 2:30p [facility] Faraz Escudero DO R51 Headache M54.2 Cervicalgia M79.601 Pain in right arm G40.89 Other seizures F43.21 Adjustment disorder with depressed mood Office Visit 05/15/2019 11:45a [facility] Zoiejeovn Dominguezw, DO R51 Headache F43.21 Adjustment disorder with depressed mood K59.00 Constipation, unspecified I10 Essential (primary) hypertension Z23 Encounter for immunization Assessments Date Code Description Provider 08/01/2019 F43.21 Adjustment disorder with depressed mood Zoie Karnow, DO 08/01/2019 I10 Essential (primary) hypertension Zoie Franklinnow, DO 08/01/2019 K59.00 Constipation, unspecified Zoie Karnow, DO 08/01/2019 M79.7 Fibromyalgia Zoie Franlkinnow, DO 08/01/2019 Z13.31 Encounter for screening for depression Zoie Angelicaw, DO 05/25/2019 R51 Headache Zoie Franklinnow, DO 05/25/2019 M54.2 Cervicalgia Zoie Angelicaw, DO 05/25/2019 M79.601 Pain in right arm Zoie Franklinnow, DO 05/25/2019 G40.89 Other seizures Zoie Franklinnow, DO 05/25/2019 F43.21 Adjustment disorder with depressed mood Zoie Franklinnow, DO 05/15/2019 R51 Headache Zoie Karnow, DO 05/15/2019 F43.21 Adjustment disorder with depressed mood Zoie Karnow, DO 05/15/2019 K59.00 Constipation, unspecified Zoie Karnow, DO 05/15/2019 I10 Essential (primary) hypertension Zoie Franklinnow, DO 05/15/2019 Z23 Encounter for immunization Zoiejevon Dominguezw, DO Plan of Treatment Future Appointment(s):10/10/2019 11:30 am - Zoie Escudero, DO at [facility]01/2020 - Zoie Karnow, DOF43.21 Adjustment disorder with depressed moodComments:Long discussion today about her moodSupportive listeningEncouragementDiscussed ways to reframe how she thinks about this time of not workingWaiting in limbo to hear about smmmnujawkE15 Essential (primary) hypertensionComments:Well controlled today Has f/u with Dr. MauserRecent labs reviewed - show new creatinine elevation - would repeat in a few veedtsS09.00 Constipation, unspecifiedComments:continue to work with lifestyle obmqhkbC11.7 FibromyalgiaComments:saw rheum - records requested - Suhail got approved and does help with her ltspfcysH95.31 Encounter for screening for depressionAllComments:>25min visit with more than 50% of the time spent counseling follow up in 2 month, sooner if needed Functional Status Description No Information Available Mental Status Description No Information Available Referrals Description No Information Available
--- OUTSIDE RECORDS SUMMARY | 2019-10-11 10:50 | XMS REPORT | Continuity of Care Document ---
:1960 Author Organization [employer] Address [address] [place] [address] Phone Care Team Providers Name Role Phone [...] Providers Description For Visit Copied on Encounter 2047 [employer] Sleep Memory loss [place], Center of unknown [facility]STOPHER. Edu cause [address] [place] [address], [facility], [address]. tel:-[phone] tel:[phone] 2047 2047 [employer] [place], Neuropsych [facility]RISTOPHER. Edu Services [address] [place] [address], [facility], [address]. tel:[phone] tel:[phone] 2047 [facility] Memory loss Jun- [employer], of unknown 9 Edu cause [address] [place] [address], tel:[phone] Family History Family Member Diagnosis Age At Onset Unknown Immunizations Vaccine Date Status Comments Immunization Unknown Payers Payer name Insurance type Covered green party ID Authorization(s) [facility] [id number] Social History Type Description Quantity Date Captured [...]
--- OUTSIDE RECORDS SUMMARY | 2019-10-11 10:50 | XMS REPORT | Continuity of Care Document ---
:1960 External Reference #:[id number] Author Name Arlet Macias MD (transmitted by agent of provider Sarai Samano) Address [address], [address] [place] [address] Care Team Providers Name Role Phone Janessa Baxter MD - Surgery Care Team Information [employer] [phone] Momo Rosales MD - Gastroenterology Care Team Information [employer] [phone] Zoie Escudero DO - Family Care Team Information [employer] [phone] Medicine Gino Morrell MD - Cardiovascular Care Team Information [employer] Disease Problems Active Problems Provider Date Hypothyroidism [...] 100tabs Tay Maya 07/26/2010 Strength needed Camilo Munoz,RUCHI [phone] Tablets Benadryl per package 30caps Tay Maya [...] CPT Code Status Date Vaccine Lot # 13226 Given 05/04/2013 Flu Vaccine Split Virus Preservative Free For Indiv 3Yr Older 50730 Given 05/04/2012 Influenza Virus 3Yrs & Over 82572 Given 12/07/2011 Tetanus And Diptheria (Td) For Adult Use Preservative Free 98004 Given 05/04/2010 Influenza Virus 3Yrs & Over [...] Result H/L Range Note Basic Metabolic 08/28/2019 [facility] Sodium 137 mmol/L Normal 135-145 Panel [address] [place] [address] [phone] Potassium 4.9 mmol/L Normal 3.5-5.0 Chloride 101 mmol/L Normal 101-111 Co2 Carbon Dioxide 30 mmol/L Normal 22-32 Anion Gap 6 mmol/L Normal 2-11 Glucose 110 mg/dL High 70-100 Blood Urea Nitrogen 18 mg/dL Normal 6-24 Creatinine 0.93 mg/dL Normal 0.51-0.95 BUN/Creatinine Ratio 19.4 Normal 8-20 Calcium 10.2 mg/dL Normal 8.6-10.3 Egfr Non- 61.5 >60 Egfr 74.4 >60 1 Vitamin B12 08/28/2019 [facility] Vitamin B12 461 pg/mL Normal 180-914 2 And Folate [address] [facility] [place] [address] [phone] Folic Acid (Folate) 16.48 ng/mL >3.99 Laboratory test 07/28/2019 [facility] Magnesium 2.1 mg/dL Normal 1.9-2.7 finding [address] [place] [address] [phone] Basic Metabolic 07/28/2019 [facility] Sodium 138 mmol/L Normal 135-145 Panel [address] [place] [address] [phone] Potassium 4.3 mmol/L Normal 3.5-5.0 Chloride 100 mmol/L Low 101-111 Co2 Carbon Dioxide 29 mmol/L Normal 22-32 Anion Gap 9 mmol/L Normal 2-11 Glucose 106 mg/dL High 70-100 Blood Urea Nitrogen 15 mg/dL Normal 6-24 Creatinine 1.30 mg/dL High 0.51-0.95 BUN/Creatinine Ratio 11.5 Normal 8-20 Calcium 9.8 mg/dL Normal 8.6-10.3 Egfr Non- 41.8 >60 Egfr 50.6 >60 3 Thyroid 07/28/2019 [facility] Free T4 (Free 0.74 Normal 0.61- 1.12 Panel [address] [facility] Thyroxine) ng/dL [place], [place] [address] [phone] Thyroxine 8.53 g/dL Normal 6.09-12.23 TSH (Thyroid Stim Horm) 5.45 mcIU/mL Normal 0.34-5.60 Laboratory test 05/22/2019 [facility] Copper, Serum 1.28 g/mL 0.75-1.45 4 finding [address] [place], [place] [address] [phone] Ceruloplasmin 28.4 mg/dL 5 Erythrocyte Sed Rate 20 mm/Hr Normal 0-29 C Reactive Protein 1.51 mg/L Normal <8.01 Vitamin B12 And 05/12/2019 [facility] Vitamin B12 169 pg/mL Low 180-914 [address] [place], [place] [address] [phone] Folic Acid (Folate) > 20.00 ng/mL >3.99 7 Laboratory 05/12/2019 [facility] Free T4 (Free 0.97 Normal 0.61-1.12 8 test finding [address] [facility] Thyroxine) ng/dL [place], [place] [address] [phone] Levetiracetam 12.8 g/mL 9 Magnesium 2.0 mg/dL Normal 1.9-2.7 10 Basic Metabolic 05/12/2019 [facility] Sodium 139 mmol/L Normal 135-145 Panel [address] [place] [address] [phone] Potassium 4.1 mmol/L Normal 3.5-5.0 Chloride 105 [...] developed and its performance characteristics determined by [facility] in a manner consistent with CLIA requirements. This test has not been cleared or approved by the U.S. Food and Drug Administration. Test Performed by: [facility] [place] [id number] Grain Trader: John eGrmain M.D. Ph.D.; CLIA# [id number] 5 REFERENCE VALUE 20.0 - 51.0 Test Performed by: [facility] - [place] [id number] Grain Trader: John Germain M.D. Ph.D.; CLIA# [id number] 6 Normal Range 180 to 914 Indeterminate Range 145 to 180 Deficient Range <145 7 Copy Result to: ZOIE ESCUDERO ([id number]) 8 Copy Result to: ZOIE ESCUDERO ([id number]) 9 REFERENCE VALUE 12.0 - 46.0 ADDITIONAL INFORMATION This test was developed and its performance characteristics determined by [facility] in a manner consistent with CLIA requirements. This test has not been cleared or approved by the U.S. Food and Drug Administration. Test Performed by: [facility] [place] [address] Grain Trader: John Germain M.D. Ph.D.; CLIA# [id number] 10 Copy Result to: ZOIE ESCUDERO ([id number]) 11 Because ethnic data is not always [...] dialysis) Procedures Date Code Description Status 05/18/2019 91175 EKG Tracing & Interpretation Completed 05/12/2019 80526 EEG Recording Awake & Asleep Completed 07/10/2013 [id number] Mammogram Completed 07/07/2012 56349357 Mammogram Completed 07/06/2011 13871392 Mammogram Completed 01/19/2011 275845690 Diabetic Foot Exam Completed 01/06/2011 528450134 Diabetic Foot Exam Completed 07/03/2010 [id number] Mammogram Completed 05/12/2010 734544781 Bone Mineral Density Test Completed 02/05/2009 [id number] Mammogram Completed 06/12/2008 537008334 Diabetic Foot Exam Completed 01/06/2008 37482179 Mammogram Completed 11/15/2007 12090947 Colonoscopy Completed Medical Devices Description No Information Available Encounters Type Date Location Provider Dx Diagnosis Office Visit 09/19/2019 [facility] Arlet Macias MD R06.83 Snoring 10:00a [facility] R53.83 Other fatigue G47.00 Insomnia, unspecified Office Visit 09/18/2019 11:30a Rheumatology Bill James M79.7 Fibromyalgia [facility] Pedraza MD Ccmob M77.01 Medial epicondylitis, right elbow M77.02 Medial epicondylitis, left elbow M72.2 Plantar fascial fibromatosis Office Visit 08/28/2019 [place] Phoenix Almanza, Z87.820 Personal 1:45p Neurologic M.D. 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 05/18/2019 I42.9 Cardiomyopathy, unspecified Johnson DumontD. 05/18/2019 R94.31 Electrocardiogram abnormal Gino Morrell M.D. [...] 10:30 am - Charisma Dickinson DNP, RN, CORROSION CONTROL ENGINEER- at [facility]ology [facility]11/16/2019 3:30 pm - Bill James MD at Rheumatology [facility]01/12/2020 2:30 pm - [place] Almanza M.D. at [place] [facility]rolog[facility]11/07/2019 11:40 am - Gino Morrell M.D. at [place] Auzrxwtuhv43/25/2020 - Arlet Macias MDR06.83 SnoringNew Orders:Sleep Study, Ordered: 09/19/19Follow up:6 prcbbI50.83 Other ulbcoyaU67.00 Insomnia, unspecified Functional Status Description No Information Available Mental Status Description No Information Available Referrals Refer to Dr Reason for Referral Status Appt Date [facility] Concern for sleep apnea Sent 09/19/2019 [address] [place], [place] [id number] [phone] [place], PHD Sent [address] [place] [address] [phone] Power Toribio MD Sent [address] [place] [address] [phone]
--- OUTSIDE RECORDS SUMMARY | 2019-10-11 10:50 | XMS REPORT | Continuity of Care Document ---
:1960 Author Organization [employer] Address [address] [place] [address] Phone Care Team Providers Name Role Phone [...] Providers Description For Visit Copied on Encounter [employer] Sleep Memory loss [place], [address] [place] [address], [facility] [[email or web address]], [address]. tel:[phone] tel:[phone] [facility] iHigh Memory loss [facility], [facility] of [address] tel:[phone] Family History Family Member Diagnosis Age At Onset Unknown Immunizations Vaccine Date Status Comments Immunization Unknown Payers Payer name Insurance type Covered democrat ID Authorization(s) Unknown Social History Type Description Quantity Date Captured Comments Alcohol Use Details Unknown Caffeine Use Details Unknown Tobacco Use Status Unknown Smoking Status Unknown Vital Signs Date / Height Weight [...]
--- OUTSIDE RECORDS SUMMARY | 2019-10-11 10:51 | XMS REPORT | Continuity of Care Document ---
:1960 External Reference #:[id number] Author Name Phoenix Almanza M.D. (transmitted by agent of provider Su Kay ) Address [address], [place] [address] Care Team Providers Name Role Phone Janessa Baxter MD - Surgery Care Team Information Check Processor [phone] Momo Rosales MD - Gastroenterology Care Team Information Check Processor Zoie Escudero DO - Family Care Team Information Check Processor [phone] Medicine Gino Morrell MD - Cardiovascular Care Team Information Check Processor Disease Problems Active Problems Provider Date Hypothyroidism [...] Patient has never smoked Smoking Status Reviewed: 08/28/19 Patient has never smoked Enjoy Exercising Enjoys [...] Tay Maya 07/26/2010 Strength needed Camilo Munoz,RUCHI [phone] Tablets Benadryl per package 30caps Tay Maya [...] CPT Code Status Date Vaccine Lot # [id number] Given 05/04/2013 Flu Vaccine Split Virus Preservative Free For Indiv 3Yr Older 19502 Given 05/04/2012 Influenza Virus 3Yrs & Over 21821 Given 12/07/2011 Tetanus And Diptheria (Td) For Adult Use Preservative Free 56146 Given 05/04/2010 Influenza Virus 3Yrs & Over Vital Signs Date Vital Result Comment 08/28/2019 1:44pm Height 61.5 inches 5'1.50" Weight 163.38 lb Heart Rate 98 /min BP Systolic 120 mmHg BP Diastolic 80 mmHg BMI (Body Mass Index) 30.4 kg/m2 08/10/2019 10:40am Height 61.5 inches 5'1.50" Weight 162.38 lb without shoes Heart Rate 80 /min BP Systolic Sitting 126 mmHg Lue (regular cuff) BP Diastolic Sitting 80 mmHg Lue (regular cuff) BP Systolic Standing 122 mmHg BP Diastolic Standing 82 mmHg BMI (Body Mass Index) 30.2 kg/m2 Results Test Acquired Date Facility Test Result H/L Range Note Laboratory test 07/28/2019 [facility] Magnesium 2.1 mg/dL Normal 1.9-2.7 finding [address] [place] [address] [phone] Basic Metabolic 07/28/2019 [facility] Sodium 138 mmol/L Normal 135-145 Panel [address] [place] [address] [phone] Potassium 4.3 mmol/L Normal 3.5-5.0 Chloride 100 mmol/L Low 101-111 Co2 Carbon Dioxide 29 mmol/L Normal 22-32 Anion Gap 9 mmol/L Normal 2-11 Glucose 106 mg/dL High 70-100 Blood Urea Nitrogen 15 mg/dL Normal 6-24 Creatinine 1.30 mg/dL High 0.51-0.95 BUN/Creatinine Ratio 11.5 Normal 8-20 Calcium 9.8 mg/dL Normal 8.6-10.3 Egfr Non- 41.8 >60 Egfr 50.6 >60 1 Thyroid 07/28/2019 [facility] Free T4 (Free 0.74 Normal 0.61- 1.12 Panel [address] [facility] Thyroxine) ng/[place] [address] [phone] Thyroxine 8.53 g/dL Normal 6.09-12.23 TSH (Thyroid Stim Horm) 5.45 mcIU/mL Normal 0.34-5.60 Laboratory test 05/22/2019 [facility] Copper, Serum 1.28 g/mL 0.75-1.45 2 finding [address] [place] [address] [phone] Ceruloplasmin 28.4 mg/dL 3 Erythrocyte Sed Rate 20 mm/Hr Normal 0-29 C Reactive Protein 1.51 mg/L Normal <8.01 Vitamin B12 And 05/12/2019 [facility] Vitamin B12 169 pg/mL Low 180-914 4 Folate Serum [address] [place] [address] [phone] Folic Acid (Folate) > 20.00 ng/mL >3.99 5 Laboratory 05/12/2019 [facility] Free T4 (Free 0.97 Normal 0.61-1.12 6 test finding [address] [place] [address] Thyroxine) ng/[place] [address] [phone] Levetiracetam 12.8 g/mL 7 Magnesium 2.0 mg/dL Normal 1.9-2.7 8 Basic Metabolic 05/12/2019 [facility] Sodium 139 mmol/L Normal 135-145 Panel [address] [place] [address] [phone] Potassium 4.1 mmol/L Normal 3.5-5.0 Chloride 105 mmol/L Normal 101-111 Co2 Carbon Dioxide 25 mmol/L Normal 22-32 Anion Gap 9 mmol/L Normal 2-11 Glucose 110 mg/dL High 70-100 Blood Urea Nitrogen 14 mg/dL Normal 6-24 Creatinine 0.87 mg/dL Normal 0.51-0.95 BUN/Creatinine Ratio 16.1 Normal 8-20 Calcium 9.5 mg/dL Normal 8.6-10.3 Egfr Non- 66.4 >60 Egfr 80.4 >60 9 1 Because ethnic data is not always [...] 5 Kidney failure <15 (or dialysis) 2 ADDITIONAL INFORMATION This test was developed and its performance characteristics determined by [facility] in a manner consistent with CLIA requirements. This test has not been cleared or approved by the U.S. Food and Drug Administration. Test Performed by: [facility] [place] [address] Assembler Seat: John Germain M.D. Ph.D.; CLIA# [id number] 3 REFERENCE VALUE 20.0 - 51.0 Test Performed by: [facility] - [address] [address] Assembler Seat: John Germain M.D. Ph.D.; CLIA# [id number] 4 Normal Range 180 to 914 Indeterminate Range 145 to 180 Deficient Range <145 5 Copy Result to: ZOIE ESCUDERO ([id number]) 6 Copy Result to: ZOIE ESCUDERO ([id number]) 7 REFERENCE VALUE 12.0 - 46.0 ADDITIONAL INFORMATION This test was developed and its performance characteristics determined by [facility] in a manner consistent with CLIA requirements. This test has not been cleared or approved by the U.S. Food and Drug Administration. Test Performed by: [facility] [place] [address] Assembler Seat: John Germain M.D. Ph.D.; CLIA# [id number] 8 Copy Result to: ZOIE ESCUDERO ([id number]) 9 Because ethnic data is not always [...] dialysis) Procedures Date Code Description Status 05/18/2019 00904 EKG Tracing & Interpretation Completed 05/12/2019 06337 EEG Recording Awake & Asleep Completed 07/10/2013 [id number] Mammogram Completed 07/07/2012 [id number] Mammogram Completed 07/06/2011 [id number] Mammogram Completed 01/19/2011 [id number] Diabetic Foot Exam Completed 01/06/2011 288952503 Diabetic Foot Exam Completed 07/03/2010 [id number] Mammogram Completed 05/12/2010 [id number] Bone Mineral Density Test Completed 02/05/2009 [id number] Mammogram Completed 06/12/2008 [id number] Diabetic Foot Exam Completed 01/06/2008 [id number] Mammogram Completed 11/15/2007 60055010 Colonoscopy Completed Medical Devices Description No Information Available Encounters Type Date Location Provider Dx Diagnosis Office Visit 08/10/2019 [facility] Nurse Visit cc I10 Essential 10:30a (primary) hypertension Office Visit 07/25/2019 [facility] Nurse Visit cc I10 Essential 2:30p (primary) hypertension Office Visit 07/07/2019 [facility] Bill James, S06.0x1S Concussion w Loc 10:00a Services Of Rosie Pedraza MD of 30 minutes or Ccmob less, sequela M79.7 Fibromyalgia M35.7 Hypermobility syndrome R53.83 Other fatigue Office Visit 06/30/2019 1:00p [facility] [address] R53.82 Chronic fatigue, Of Rosie Castaneda, N.P. 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, init R20.2 Paresthesia of skin R51 Headache R25.1 Tremor, unspecified M79.7 Fibromyalgia Office Visit 05/18/2019 [facility] Gino Lara E78.2 Mixed hyperlipidemia 3:00p Cardiology Camilo Morrell R53.82 Chronic fatigue, unspecified I42.9 Cardiomyopathy, unspecified R94.31 Abnormal electrocardiogram [ECG] [EKG] Office Visit 04/21/2019 [facility] Phoenix S06.2x9A Diffuse Tbi w loss 2:00p Neurologic Camilo Almanza of consciousness [facility] of unsp duration, init G40.909 Epilepsy, unsp, not intractable, without status epilepticus 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 06/30/[address] Castaneda N[address]P. 06/30/[address] Castaneda, N.P. 06/30/2019 I42.9 Cardiomyopathy, unspecified Ave Castaneda, N.P. 06/30/2019 I10 Essential (primary) hypertension Ave Castaneda, N.P. 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 05/19/2019 G40.909 Epilepsy, unspecified, not intractable, Ckwilliams May, N.P. 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 of consciousness of unspecified duration, initial encounter 05/19/2019 R20.2 Paresthesia of skin Ck May, N.P. 05/19/2019 R51 Headache Ck May, N.P. 05/19/2019 R25.1 Tremor, unspecified Ckwilliams May, N.P. 05/19/2019 M79.7 Fibromyalgia Ck May, [...] Phoenix Almanza M.D. Plan of Treatment Future Appointment(s):01/12/2020 2:30 pm - Phoenix Almanza M.D. at [facility]09/19/2019 10:00 am - Arlet Macias MD at [facility]09/18/2019 11:30 am - Bill James MD at [facility]11/07/2019 11:40 am - Gino Morrell M.D. at [facility]08/28/2019 - Phoenix Almanza M.D.Z87.820 Personal history of traumatic brain exnnogK80 WrxvanosK38.1 Anterograde irkyonwJ81.7 Fibromyalgia Functional Status Description No Information Available Mental Status Description No Information Available Referrals Refer to Reason for Referral Status Appt Date [facility] Concern for sleep apnea Sent 09/19/[address] [place] [address] [phone] Phoenix Parada, PHD Sent [address] [place] [address] [phone] Power Toribio MD Sent [address] [place], [place] [address] [phone]
== END 2019-10-11 10:50 | disposition home or self-care (01) ==
LOC: ED 09:48
DX: J06.9 Acute upper respiratory infection, unspecified (principal); E03.9 Hypothyroidism, unspecified; D64.9 Anemia, unspecified; E78.00 Pure hypercholesterolemia, unspecified; K21.9 Gastro-esophageal reflux disease without esophagitis; F32.9 Major depressive disorder, single episode, unspecified; Z85.41 Personal history of malignant neoplasm of cervix uteri; Z90.710 Acquired absence of both cervix and uterus; Z98.51 Tubal ligation status; Z90.49 Acquired absence of other specified parts of digestive tract; Z79.890 Hormone replacement therapy; Z79.899 Other long term (current) drug therapy; Z88.1 Allergy status to other antibiotic agents; Z88.5 Allergy status to narcotic agent; Z88.8 Allergy status to other drugs, medicaments and biological substances
CPT/HCPCS: 99281